=== PATIENT | female | born 1965 | race Caucasian/White ===

== ENCOUNTER 2018-02-05 11:19 | Emergency (ER) | payer BC, OTHER ==
[2018-02-05 12:09] LABS: Urine Specific Gravity 1.015 (1.005-1.030)
[2018-02-05 12:12] LABS: Urine Blood TRACE (NEG); Urine Glucose NEGATIVE (NEG); Urine Protein NEGATIVE (NEG); Urine Specific Gravity 1.015 (1.005-1.030)
--- NOTE | 2018-02-05 12:15 | RAD REPORT ---
EXAM DESCRIPTION: RAD - Chest Single View - 02/05/2018 12:10 pm CLINICAL HISTORY: CHEST PAIN Chest pain. COMPARISON: No comparisons FINDINGS: Portable technique limits examination quality. The lungs are grossly clear. The heart is normal in size. No displaced fractures. IMPRESSION: No acute intrathoracic process suspected.
[2018-02-05 12:46] LABS: Absolute Lymphocytes (CBC) 3.3 K/uL (0.7-4.9); Absolute Monocytes 0.6 K/uL (0.1-1.3); Absolute Neutrophil 3.8 K/uL (1.8-8.0); Eosinophils % 2.1 % (0-4.4); Hematocrit 43.1 % (36.0-45.0); Lymphocytes % 41.9 % (15.3-44.8); MCH 32.7 pg (27.0-35.0); MCV 93.1 fL (80-100); RBC Red Blood Cell Count 4.63 M/uL (3.86-4.86)
[2018-02-05 12:47] LABS: Protime INR 0.99
[2018-02-05 12:58] LABS: ALT/SGPT 20 U/L (12-78); AST/SGOT 20 U/L (15-37); Albumin 4.1 g/dL (3.4-5.0); Alkaline Phosphatase 117 U/L (45-117); BUN Blood Urea Nitrogen 14 mg/dL (7-18); Bicarbonate 27 mmol/L (21-32); Bilirubin Direct 0.2 mg/dL (0-0.2); Bilirubin Total 0.6 mg/dL (0.2-1.0); Glucose Level 73 mg/dL (74-106); Magnesium 2.3 mg/dL (1.8-2.4); NT PRO-BNP 9 pg/mL (<125); Potassium 3.3 mmol/L (3.5-5.1); Protein, Total 8.6 g/dL (6.4-8.2); Sodium Level 141 mmol/L (136-145); Troponin (Emerg Dept Use Only) < 0.02 ng/mL (0.0-0.045)
[2018-02-05] MEDS ORDERED: ACETAMINOPHEN 325 MG TABLET ONE ×2 (13:34→13:48)
--- NOTE | 2018-02-05 14:13 | ER ---
Nurse's Notes [facility] Name: Roxana De Leon Age: 53 yrs Sex: Female : 1965 Arrival Date: 02/05/2018 Time: 11:32 Bed 7 Private MD: Diagnosis: Chest pain, unspecified Presentation: 02/05 11:33 Presenting complaint: EMS states: Chest pain for the past 3 days that she describes as aj1 tightness, previously it was radiating to her left shoulder, but today its radiating down her left arm and she reports numbness and tingling in the left hand. States that she has felt more "out of it" when she is having the chest pain, states that she woke up this morning and noticed a knot on her forehead, but she has no idea how she got it. Reports weakness in left hand. Transition of care: patient was not received from another setting of care. Onset of symptoms was February 02, 2018. Risk Assessment: Do you want to hurt yourself or someone else? Patient reports no desire to harm self or others. Initial Sepsis Screen: Does the patient meet any 2 criteria? No. Patient's initial sepsis screen is negative. Does the patient have a suspected source of infection? No. Patient's initial sepsis screen is negative. Care prior to arrival: None. 11:33 Method Of Arrival: EMS: [facility] aj1 11:33 Acuity: STEPHANIE 3 aj1 Triage Assessment: 11:36 General: Appears in no apparent distress. uncomfortable, Behavior is calm, cooperative, aj1 appropriate for age. Pain: Complains of pain in mid-sternal area Pain radiates to left arm Pain currently is 6 out of 10 on a pain scale. Neuro: Level of Consciousness is awake, alert, obeys commands. Cardiovascular: Patient's skin is warm and dry. CASING TIER: 11:36 LMP N/A - Irregular menses aj1 Historical: - Allergies: 11:36 No Known Allergies; aj1 - Home Meds: 11:36 Xanax Oral as needed [Active]; Flexeril Oral as needed [Active]; aj1 - PMHx: 11:36 Anxiety; aj1 - PSHx: 11:36 Appendectomy; breast augmentation; aj1 - Immunization history:: Flu vaccine is not up to date. - Social history:: Smoking status: Patient/guardian denies using tobacco. - Ebola Screening: : Patient denies travel to an Ebola-affected area in the 21 days before illness onset. Screenin:39 Abuse screen: Denies threats or abuse. Denies injuries from another. Nutritional aj1 screening: No deficits noted. Tuberculosis screening: No symptoms or risk factors identified. 14:25 Fall Risk None identified. aj1 Assessment: 11:39 General: Appears in no apparent distress. uncomfortable, Behavior is calm, cooperative, aj1 appropriate for age. Pain: Complains of pain in mid-sternal area Pain radiates to left arm Pain currently is 6 out of 10 on a pain scale. Quality of pain is described as pressure, Pain began 2-3 days ago. Is intermittent, Alleviated by nothing. Aggravated by nothing. Neuro: Level of Consciousness is awake, alert, obeys commands, Oriented to person, place, time, situation, Director Of Casework are weak on right Moves all extremities. Weakness in right hand(s) Speech is normal, Facial symmetry appears normal, Reports dizziness, numbness in left arm. Cardiovascular: Reports chest pain, shortness of breath, Heart tones S1 S2 present Patient's skin is warm and dry. Rhythm is sinus rhythm. Respiratory: Reports shortness of breath Airway is patent Respiratory effort is even, unlabored, Respiratory pattern is regular, symmetrical. GI: No signs and/or symptoms were reported involving the gastrointestinal system. : No signs and/or symptoms were reported regarding the genitourinary system. EENT: No signs and/or symptoms were reported regarding the EENT system. Derm: No signs and/or symptoms reported regarding the dermatologic system. Skin is pink, warm \\T\\ dry. normal. Musculoskeletal: No signs and/or symptoms reported regarding the musculoskeletal system. Circulation, motion, and sensation intact. 11:44 Reassessment: Carly Cervantes NP at bedside. aj1 12:30 Reassessment: Patient appears in no apparent distress at this time. No changes from aj1 previously documented assessment. Patient and/or family updated on plan of care and expected duration. Pain level reassessed. Patient is alert, oriented x 3, equal unlabored respirations, skin warm/dry/pink. 13:30 Reassessment: Patient appears in no apparent distress at this time. No changes from aj1 previously documented assessment. Patient and/or family updated on plan of care and expected duration. Pain level reassessed. Patient is alert, oriented x 3, equal unlabored respirations, skin warm/dry/pink. 14:22 Reassessment: Patient appears in no apparent distress at this time. No changes from aj1 previously documented assessment. Patient and/or family updated on plan of care and expected duration. Pain level reassessed. Patient is alert, oriented x 3, equal unlabored respirations, skin warm/dry/pink. Vital Signs: 11:36 BP 122 / 94; Pulse 85; Resp 16; Temp 98.2; Pulse Ox 100% on R/A; Weight 67.13 kg (R); aj1 Height 5 ft. 2 in. (157.48 cm) (R); Pain 6/10; 12:30 BP 124 / 87; Pulse 86; Resp 18; Pulse Ox 98% on R/A; aj1 13:30 BP 121 / 77; Pulse 78; Resp 18; Pulse Ox 97% on R/A; aj1 14:24 BP 125 / 83; Pulse 83; Resp 18; Pulse Ox 97% on R/A; aj1 11:36 Body Mass Index 27.07 (67.13 kg, 157.48 cm) aj1 ED Course: 11:32 Patient arrived in ED. aj1 11:35 Triage completed. aj1 11:36 Arm band placed on Patient placed in an exam room, Patient triaged in ER bed 7. aj1 11:39 Christiano Cervantes NP is PHCP. pm1 11:39 Sy Franco MD is Attending Physician. pm1 11:39 Patient has correct armband on for positive identification. Bed in low position. Call aj light in reach. Side rails up X 1. environmental monitoring specialist on. Pulse ox on. NIBP on. 11:39 No provider procedures requiring assistance completed. Patient maintains SpO2 aj1 saturation greater than 95% on room air. 11:39 Missed attempt(s): 22 gauge in right forearm. Bleeding controlled, band aid applied, aj1 catheter tip intact. 11:42 Missed attempt(s): 22 gauge in left antecubital area. Bleeding controlled, band aid aj1 applied, catheter tip intact. 11:44 Blanca Gaona RN is Primary Nurse. aj1 11:50 Urine collected: clean catch specimen, clear. [facility] 12:00 EKG done, by electromechanical technologist. reviewed by Christiano Cervantes NP. dt2 12:06 X-ray completed. Portable x-ray completed in exam room. Patient tolerated procedure ls3 well. 12:09 XRAY Chest (1 view) In Process Unspecified. EDMS 14:24 Patient did not have IV access during this emergency room visit. aj1 Administered Medications: 13:43 Drug: Tylenol 650 mg Route: PO; aj1 Outcome: 14:11 Discharge ordered by MD. pm1 14:25 Discharged to home ambulatory. aj1 14:25 Condition: good 14:25 Discharge instructions given to patient, Instructed on discharge instructions, follow up and referral plans. Demonstrated understanding of instructions, follow-up care. 14:25 Patient left the ED. aj1 Signatures: Dispatcher [employer] EDBlanca Pagan, RN RN aj1 Christiano Cervantes, PRESS OPERATOR MEAT PRESS OPERATOR MEAT pm1 Catrina Washington 5 Yohana Bone dt2 Jonnie Kuhn ls3
--- NOTE | 2018-02-05 14:14 | EDPHYS ---
Physician Documentation [facility] Name: Roxana De Leon Age: 53 yrs Sex: Female : 1965 Arrival Date: 02/05/2018 Time: 11:32 Bed 7 Private MD: ED Physician Sy Franco HPI: 02/05 12:00 This 53 yrs old Female presents to ER via EMS with complaints of Chest Pain. pm1 12:00 The patient or guardian reports chest pain that is located primarily in the mid-sternal pm1 area. Onset: 3 day(s) ago. The pain radiates to the left arm. Associated signs and symptoms: Pertinent negatives: abdominal pain, cough, diaphoresis, dizziness, headache, nausea, shortness of breath, vomiting. The chest pain is described as a pressure. Duration: The patient or guardian reports a single episode, that is still ongoing. Modifying factors: the symptoms are aggravated by deep breath, palpation of area, moving left arm. The patient has not experienced similar symptoms in the past. The patient has not recently seen a physician. PERSONAL INVESTMENT ADVISER: 11:36 LMP N/A - Irregular menses aj1 Historical: - Allergies: 11:36 No Known Allergies; aj1 - Home Meds: 11:36 Xanax Oral as needed [Active]; Flexeril Oral as needed [Active]; aj1 - PMHx: 11:36 Anxiety; aj1 - PSHx: 11:36 Appendectomy; breast augmentation; aj1 - Immunization history:: Flu vaccine is not up to date. - Social history:: Smoking status: Patient/guardian denies using tobacco. - Ebola Screening: : Patient denies travel to an Ebola-affected area in the 21 days before illness onset. ROS: 12:00 Constitutional: Negative for fever, chills, and weight loss, Eyes: Negative for injury, pm1 pain, redness, and discharge, ENT: Negative for injury, pain, and discharge, Neck: Negative for injury, pain, and swelling. 12:00 Respiratory: Negative for shortness of breath, cough, wheezing, and pleuritic chest pain, Abdomen/GI: Negative for abdominal pain, nausea, vomiting, diarrhea, and constipation, Back: Negative for injury and pain, : Negative for injury, bleeding, discharge, and swelling, MS/Extremity: Negative for injury and deformity, Skin: Negative for injury, rash, and discoloration, Neuro: Negative for headache, weakness, numbness, tingling, and seizure. 12:00 Cardiovascular: Positive for chest pain, Negative for edema, palpitations. Exam: 12:00 Constitutional: This is a well developed, well nourished patient who is awake, alert, pm1 and in no acute distress. Head/Face: Normocephalic, atraumatic. Eyes: Pupils equal round and reactive to light, extra-ocular motions intact. Lids and lashes normal. Conjunctiva and sclera are non-icteric and not injected. Cornea within normal limits. Periorbital areas with no swelling, redness, or edema. ENT: Nares patent. No nasal discharge, no septal abnormalities noted. Tympanic membranes are normal and external auditory canals are clear. Oropharynx with no redness, swelling, or masses, exudates, or evidence of obstruction, uvula midline. Mucous membranes moist. Neck: Trachea midline, no thyromegaly or masses palpated, and no cervical lymphadenopathy. Supple, full range of motion without nuchal rigidity, or vertebral point tenderness. No Meningismus. 12:00 Cardiovascular: Regular rate and rhythm with a normal S1 and S2. No gallops, murmurs, or rubs. Normal PMI, no JVD. No pulse deficits. Respiratory: Lungs have equal breath sounds bilaterally, clear to auscultation and percussion. No rales, rhonchi or wheezes noted. No increased work of breathing, no retractions or nasal flaring. Abdomen/GI: Soft, non-tender, with normal bowel sounds. No distension or tympany. No guarding or rebound. No evidence of tenderness throughout. Back: No spinal tenderness. No costovertebral tenderness. Full range of motion. Skin: Warm, dry with normal turgor. Normal color with no rashes, no lesions, and no evidence of cellulitis. MS/ Extremity: Pulses equal, no cyanosis. Neurovascular intact. Full, normal range of motion. 12:00 Chest/axilla: Inspection: normal, Palpation: tenderness, of the mid-sternal area, that totally reproduces the patient's complaints. 12:00 Neuro: Orientation: is normal, Motor: is normal, Sensation: is normal, no obvious gross deficits. Vital Signs: 11:36 BP 122 / 94; Pulse 85; Resp 16; Temp 98.2; Pulse Ox 100% on R/A; Weight 67.13 kg (R); aj1 Height 5 ft. 2 in. (157.48 cm) (R); Pain 6/10; 12:30 BP 124 / 87; Pulse 86; Resp 18; Pulse Ox 98% on R/A; aj1 13:30 BP 121 / 77; Pulse 78; Resp 18; Pulse Ox 97% on R/A; aj1 14:24 BP 125 / 83; Pulse 83; Resp 18; Pulse Ox 97% on R/A; aj1 11:36 Body Mass Index 27.07 (67.13 kg, 157.48 cm) aj1 MDM: 11:40 Patient medically screened. pm1 14:08 ED course: Patient with on and off chest pressure for the past 3 days. Today with pm1 constant chest pain since 0600. reproduced with deep breathing. Patient's initial troponin which is greater than 4 hours after onset of chest pain today is negative. Patient offered repeat troponin for reassurance but patient does not want venipuncture again. Patient instructed to follow up with PCP and given return precautions. 14:08 Data reviewed: vital signs. Data interpreted: Pulse oximetry: on room air is 100 %. pm1 Interpretation: normal. Counseling: I had a detailed discussion with the patient and/or guardian regarding: the historical points, exam findings, and any diagnostic results supporting the discharge/admit diagnosis, lab results, radiology results, the need for outpatient follow up, to return to the emergency department if symptoms worsen or persist or if there are any questions or concerns that arise at home. 02/05 11:48 Order name: Basic Metabolic Panel pm1 02/05 11:48 Order name: CBC with Diff pm1 02/05 11:48 Order name: LFT's; Complete Time: 13:00 pm1 02/05 11:48 Order name: Magnesium; Complete Time: 13:00 pm1 02/05 11:48 Order name: NT PRO-BNP; Complete Time: 13:00 pm1 02/05 11:48 Order name: PT-INR; Complete Time: 12:59 pm1 02/05 11:48 Order name: Troponin (emerg Dept Use Only); Complete Time: 13:00 pm1 02/05 11:48 Order name: XRAY Chest (1 view); Complete Time: 12:20 pm1 02/05 11:48 Order name: EKG; Complete Time: 11:49 pm1 02/05 11:49 Order name: Basic Metabolic Panel; Complete Time: 13:00 EDMS 02/05 11:49 Order name: CBC with Automated Diff; Complete Time: 12:59 EDMS 02/05 11:57 Order name: Urine Dipstick--Ancillary (enter results); Complete Time: 12:20 bd 02/05 11:58 Order name: Urine --Ancillary (enter results); Complete Time: 12:20 bd 02/05 11:48 Order name: Cardiac monitoring; Complete Time: 12:34 pm1 02/05 11:48 Order name: EKG - Nurse/Tech; Complete Time: 12:34 pm1 02/05 11:48 Order name: Labs collected and sent; Complete Time: 12:34 pm1 02/05 11:48 Order name: O2 Per Protocol; Complete Time: 12:34 pm1 02/05 11:48 Order name: O2 Sat Monitoring; Complete Time: 12:34 pm1 02/05 11:48 Order name: Urine Dipstick-Ancillary (obtain specimen); Complete Time: 12:34 pm1 02/05 11:48 Order name: Urine Test (obtain specimen); Complete Time: 12:33 pm1 Administered Medications: 13:43 Drug: Tylenol 650 mg Route: PO; aj1 Disposition: 18:13 Co-signature as Attending Physician, Sy Franco MD I agree with the assessment and kdr plan of care. Disposition: 02/05/18 14:11 Discharged to Home. Impression: Chest pain, unspecified. - Condition is Stable. - Discharge Instructions: Nonspecific Chest Pain. - Medication Reconciliation Form, Thank You Letter form. - Follow up: Emergency Department; When: As needed; Reason: Worsening of condition. Follow up: Private Physician; When: 2 - 3 days; Reason: Recheck today's complaints, Continuance of care, Re-evaluation by your physician. - Problem is new. - Symptoms have improved. Signatures: Dispatcher [employer] [facility] Blanca Gaona RN RN aj1 Sy Franco MD MD kdr Marinas, Patrick GEOTHERMAL POWERPLANT MECHANIC GEOTHERMAL POWERPLANT MECHANIC pm1 Corrections: (The following items were deleted from the chart) 14:25 14:11 02/05/2018 14:11 Discharged to Home. Impression: Chest pain, unspecified. aj1 Condition is Stable. Forms are Medication Reconciliation Form, Thank You Letter, Antibiotic Education, Prescription Opioid Use. Follow up: Emergency Department; When: As needed; Reason: Worsening of condition. Follow up: Private Physician; When: 2 - 3 days; Reason: Recheck today's complaints, Continuance of care, Re-evaluation by your physician. Problem is new. Symptoms have improved. pm1
--- NOTE | 2018-02-05 15:11 | EKG ---
Test Date: 2018-02-05 Test Time: 11:56:17 Evaluation Advisor: MANUEL MEASUREMENT RESULTS: Intervals: Rate: 80 CA: 150 QRSD: 90 QT: 400 QTc: 461 [place]: P: 29 CA: 150 QRS: 84 T: 79 INTERPRETIVE STATEMENTS: Normal sinus rhythm Normal ECG No previous ECG available for comparison Electronically Signed On 02-05-18 15:10:26 LAMP SHADE MAKER by Quinten Whitaker
== END 2018-02-05 14:25 | disposition home or self-care (01) ==
LOC: ER 11:19
DX: R07.9 Chest pain, unspecified (principal); F41.9 Anxiety disorder, unspecified; Z79.899 Other long term (current) drug therapy
CPT/HCPCS: 36415; 71045; 80048; 80076; 81003; 81025; 83735; 83880; 84484; 85025; 85610; 93005; 99285